=== PATIENT | male | born 1975 | race African-American/Black ===

== ENCOUNTER 2016-11-19 03:13 | Emergency (ER) | payer MEDICARE, MEDICAID ==
[~2016-11-19] VITALS: Ht 182.9 cm; Wt 109.0 kg
[2016-11-19] MEDS ORDERED: SODIUM CHLORIDE 0.9% 250 ML IV ONE (05:23)
[2016-11-19] MEDS ORDERED: ONDANSETRON HCL 4MG/2ML VIAL IV ONE (05:30)
[2016-11-19] MEDS ORDERED: FAMOTIDINE 20MG/2ML VIAL IV ONE (05:30)
[2016-11-19 05:48] LABS: BASOPHILS % 0.6 % (0.0-2.0); EOSINOPHILS % 0.1 % (0.0-5.0); HEMATOCRIT. 53.9 % (42.0-52.0); HEMOGLOBIN. 18.5 g/dL (14.0-18.0); LYMPHOCYTES % 12.7 % (20.0-50.0); MEAN CORPUSCULAR HEMOGLOBIN 28.4 pg (28.0-32.0); MEAN CORPUSCULAR VOLUME 82.7 fL (80.0-94.0); MEAN PLATELET VOLUME 8.7 fl (7.4-10.4); MONOCYTES % 7.7 % (2.0-8.0); NEUTROPHILS % 78.9 % (40.0-76.0); PLATELET 247 x1000/uL (130-400); RED BLOOD CELL COUNT 6.52 mill/uL (4.7-6.1); RED CELL DISTRIBUTION WIDTH 14.2 % (11.6-14.6)
[2016-11-19 06:03] LABS: CARBON DIOXIDE 34 mEq/L (21-32); CHLORIDE 93 mEq/L (98-107)
[2016-11-19 06:55] LABS: CLARITY URINE CLEAR (CLEAR); COLOR URINE ORANGE (YELLOW); GLUCOSE URINE NEGATIVE (NEGATIVE); KETONES URINE 4+ (NEGATIVE); LEUKOCYTE ESTERASE URINE NEGATIVE (NEGATIVE); NITRITE URINE POSITIVE (NEGATIVE); OCCULT BLOOD URINE NEGATIVE (NEGATIVE); PH URINE 6.5 (4.5-8.0); PROTEIN URINE 1+ (NEGATIVE); SPECIFIC GRAVITY URINE 1.032 (1.005-1.030)
[2016-11-19 07:11] LABS: CREATINE KINASE 211 IU/L (39-308); CREATINE KINASE MB FRACTION 2.5 ng/mL (0.5-3.6); TROPONIN I < 0.02 ng/mL (0.00-0.04)
[2016-11-19] MEDS ORDERED: CEFTRIAXONE 1 G PREMIX 50 ML IV ONE (08:00)
[2016-11-19 08:34] LABS: *AMPHETAMINES SCREEN URINE NEGATIVE (NEGATIVE); *BARBITURATES SCREEN URINE NEGATIVE (NEGATIVE); *BENZODIAZEPINES SCREEN URINE NEGATIVE (NEGATIVE); *COCAINE SCREEN URINE NEGATIVE (NEGATIVE); CANNABINOID URINE SCREEN PRESUMTIVE POSITIVE (NEGATIVE); METHADONE URINE SCREEN NEGATIVE (NEGATIVE); OPIATES URINE SCREEN NEGATIVE (NEGATIVE); PHENCYCLIDINE URINE SCREEN PRESUMTIVE POSITIVE (NEGATIVE)
[2016-11-19 08:58] VITALS: BP 147/99
== END 2016-11-19 10:13 | disposition home or self-care (01) ==
LOC: ER 07:34
DX: R11.2 Nausea with vomiting, unspecified (principal); R42 Dizziness and giddiness; R53.1 Weakness; F17.200 Nicotine dependence, unspecified, uncomplicated; F12.10 Cannabis abuse, uncomplicated
CPT/HCPCS: 36415; 74022; 80053; 80305; 81001; 82550; 82553; 84484; 85025; 93005; 96361; 96365; 96375; 99285; J0696; J2405; J3490; J7030; J7050

== ENCOUNTER 2016-11-20 20:20 | Emergency (ER) | payer MEDICARE, MEDICAID ==
[~2016-11-20] VITALS: Ht 182.9 cm; Wt 107.0 kg
[2016-11-21] MEDS ORDERED: SODIUM CHLORIDE 0.9% 1,000 ML IV ONE (01:30)
[2016-11-21] MEDS ORDERED: OMEPRAZOLE 20MG CAPSULE EXTENDED RELEASE PO ONE (01:30)
[2016-11-21] MEDS ORDERED: ONDANSETRON HCL 4MG/2ML VIAL IV ONE (02:45)
[2016-11-21 03:20] VITALS: BP 158/95
== END 2016-11-21 03:40 | disposition home or self-care (01) ==
LOC: ER 20:20
DX: K21.9 Gastro-esophageal reflux disease without esophagitis (principal); F17.200 Nicotine dependence, unspecified, uncomplicated; F12.90 Cannabis use, unspecified, uncomplicated
CPT/HCPCS: 96361; 96374; 99284; J2405; J7030

== ENCOUNTER 2016-12-20 10:38 | Inpatient (IN) | payer MEDICARE, MEDICAID ==
[~2016-12-20] VITALS: Ht 182.9 cm; Wt 94.8 kg
[2016-12-20] MEDS ORDERED: ONDANSETRON HCL 4MG/2ML VIAL IV STA (11:05)
[2016-12-20] MEDS ORDERED: SODIUM CHLORIDE 0.9% 1,000 ML IV ONE (11:05)
[2016-12-20] MEDS ORDERED: FAMOTIDINE 20MG/2ML VIAL IV STA (11:05)
[2016-12-20] MEDS ORDERED: ONDANSETRON HCL 4MG/2ML VIAL IV ONE (11:25)
[2016-12-20] MEDS ORDERED: FAMOTIDINE 20MG/2ML VIAL IV ONE (11:30)
[2016-12-20 11:40] LABS: HEMATOCRIT. 56.6 % (42.0-52.0); HEMOGLOBIN. 19.6 g/dL (14.0-18.0); MEAN CORPUSCULAR HEMOGLOBIN 28.5 pg (28.0-32.0); MEAN CORPUSCULAR VOLUME 82.4 fL (80.0-94.0); MEAN PLATELET VOLUME 8.9 fl (7.4-10.4); PLATELET 284 x1000/uL (130-400); RED BLOOD CELL COUNT 6.87 mill/uL (4.7-6.1); RED CELL DISTRIBUTION WIDTH 14.1 % (11.6-14.6)
[2016-12-20 11:49] LABS: INR 1.1; PROTHROMBIN TIME 11.8 sec
[2016-12-20 11:53] LABS: CARBON DIOXIDE 35 mEq/L (21-32); CHLORIDE 93 mEq/L (98-107)
[2016-12-20 12:13] LABS: PLATELET ESTIMATE NORMAL
[2016-12-20] MEDS ORDERED: POTASSIUM CHLORIDE 20MEQ TABLET SR PO ONE (12:15)
[2016-12-20] MEDS ORDERED: SODIUM CHLORIDE 0.9% 1000ML BAG (SEPSIS BOLUS) IV ONE (12:15)
[2016-12-20 12:34] LABS: CLARITY URINE TURBID (CLEAR); COLOR URINE ORANGE (YELLOW); GLUCOSE URINE NEGATIVE (NEGATIVE); KETONES URINE 4+ (NEGATIVE); LEUKOCYTE ESTERASE URINE TRACE (NEGATIVE); NITRITE URINE POSITIVE (NEGATIVE); OCCULT BLOOD URINE NEGATIVE (NEGATIVE); PH URINE 6.5 (4.5-8.0); PROTEIN URINE 3+ (NEGATIVE); SPECIFIC GRAVITY URINE 1.036 (1.005-1.030)
[2016-12-20] MEDS ORDERED: SODIUM CHLORIDE 0.9% 2,000 ML IV SCH (12:45)
[2016-12-20] MEDS ORDERED: SODIUM CHLORIDE 0.9% 10ML VIAL ONE (13:53)
[2016-12-20] MEDS ORDERED: IOHEXOL-300 100 ML BOTTLE ONE (13:53)
[2016-12-20] MEDS ORDERED: GUAIFENESIN 200MG/10ML SUGAR FREE UDC PO PRN (14:15)
[2016-12-20] MEDS ORDERED: ACETAMINOPHEN 325MG TABLET PO PRN (14:15)
[2016-12-20] MEDS ORDERED: DOCUSATE SODIUM 100MG CAPSULE PO PRN (14:15)
[2016-12-20] MEDS ORDERED: IPRATROPIUM/ALBUTEROL 0.5-3(2.5)MG/3ML NEB INH PRN (14:15)
[2016-12-20] MEDS ORDERED: HYDROCODONE/ACETAMINOPHEN 5/325MG TABLET PO PRN (14:15)
[2016-12-20] MEDS ORDERED: LORAZEPAM 2MG/ML CPJ IV PRN (14:15)
[2016-12-20] MEDS ORDERED: ENOXAPARIN 40MG/0.4ML SYR SUBCUT SCH (14:15)
[2016-12-20] MEDS ORDERED: NA PHOS,M-B/NA PHOS,DI-BA ENEMA 118ML PR PRN (14:15)
[2016-12-20] MEDS ORDERED: DIPHENHYDRAMINE 50MG/ML VIAL IV PRN (14:15)
[2016-12-20] MEDS ORDERED: MAGNESIUM/ALUMINUM HYDROXIDE/SIMETHICONE 30ML UDC PO PRN (14:15)
[2016-12-20] MEDS ORDERED: HYDROMORPHONE HCL/PF 2MG/ML CPJ IV PRN (14:15)
[2016-12-20 16:00] VITALS: BP 142/101
[2016-12-20 16:30] VITALS: BP 142/101
[2016-12-20] MEDS: SODIUM CHLORIDE 0.45% 1,000 ML IV SCH (17:38)
[2016-12-20] MEDS ORDERED: ONDA4TAB5 PO (17:55)
[2016-12-20] MEDS ORDERED: RANI-563 PO (17:56)
[2016-12-20 19:04] LABS: CARBON DIOXIDE 36 mEq/L (21-32); CHLORIDE 97 mEq/L (98-107)
[2016-12-20 20:00] VITALS: BP 139/108
[2016-12-20] MEDS: ENOXAPARIN 30MG/0.3ML SYR SUBCUT SCH (21:00)
[2016-12-20 21:15] VITALS: BP 124/88
[2016-12-20] MEDS: ONDANSETRON HCL 4MG/2ML VIAL IV PRN (22:29)
[2016-12-21] VITALS: BP 134/98
[2016-12-21 04:00] VITALS: BP 134/94
[2016-12-21] MEDS: ONDANSETRON HCL 4MG/2ML VIAL IV PRN ×3 (06:01→18:36)
[2016-12-21 06:50] LABS: BASOPHILS % 0.4 % (0.0-2.0); HEMATOCRIT. 54.7 % (42.0-52.0); HEMOGLOBIN. 18.6 g/dL (14.0-18.0); MEAN CORPUSCULAR HEMOGLOBIN 28.2 pg (28.0-32.0); MEAN CORPUSCULAR VOLUME 82.8 fL (80.0-94.0); MEAN PLATELET VOLUME 8.8 fl (7.4-10.4); MONOCYTES % 7.3 % (2.0-8.0); NEUTROPHILS % 83.3 % (40.0-76.0); PLATELET 311 x1000/uL (130-400); RED BLOOD CELL COUNT 6.61 mill/uL (4.7-6.1); RED CELL DISTRIBUTION WIDTH 14.1 % (11.6-14.6)
[2016-12-21 07:27] LABS: CARBON DIOXIDE 34 mEq/L (21-32); CHLORIDE 95 mEq/L (98-107); HDL CHOLESTEROL 31 mg/dL (40-59); LDL CHOLESTEROL 207 mg/dL (5-100)
[2016-12-21] MEDS: ENOXAPARIN 30MG/0.3ML SYR SUBCUT SCH ×2 (08:29→21:00)
[2016-12-21] MEDS: PANTOPRAZOLE SODIUM 40 MG/VIAL IV SCH (08:29)
[2016-12-21 08:30] VITALS: BP 142/101
[2016-12-21] MEDS: SODIUM CHLORIDE 0.45% 1,000 ML IV SCH ×2 (08:48→18:16)
[2016-12-21 09:58] LABS: T4 FREE 1.56 ng/dL (0.76-1.46)
[2016-12-21] MEDS: CLONIDINE 0.1MG TABLET PO PRN ×2 (12:36→18:37)
[2016-12-21 15:38] LABS: CREATINE KINASE 105 IU/L (39-308); CREATINE KINASE MB FRACTION 1.1 ng/mL (0.5-3.6); TROPONIN I < 0.02 ng/mL (0.00-0.04)
[2016-12-21 16:00] VITALS: BP 150/98
[2016-12-21 18:33] VITALS: BP 156/109
[2016-12-21 20:00] VITALS: BP 135/95
[2016-12-21 23:29] LABS: CREATINE KINASE 101 IU/L (39-308); CREATINE KINASE MB FRACTION 1.1 ng/mL (0.5-3.6); TROPONIN I < 0.02 ng/mL (0.00-0.04)
[2016-12-22] VITALS (7 sets, daily range): BP systolic 119–149; BP diastolic 81–115
[2016-12-22] MEDS: ONDANSETRON HCL 4MG/2ML VIAL IV PRN (00:07)
[2016-12-22] MEDS: SODIUM CHLORIDE 0.45% 1,000 ML IV SCH ×2 (05:25→18:23)
[2016-12-22 06:05] LABS: CREATINE KINASE 93 IU/L (39-308); CREATINE KINASE MB FRACTION 0.8 ng/mL (0.5-3.6); TROPONIN I < 0.02 ng/mL (0.00-0.04)
[2016-12-22 06:19] LABS: BASOPHILS % 0.5 % (0.0-2.0); HEMATOCRIT. 51.8 % (42.0-52.0); HEMOGLOBIN. 17.8 g/dL (14.0-18.0); LYMPHOCYTES % 12.5 % (20.0-50.0); MEAN CORPUSCULAR HEMOGLOBIN 28.5 pg (28.0-32.0); MEAN CORPUSCULAR VOLUME 83.2 fL (80.0-94.0); MEAN PLATELET VOLUME 9.1 fl (7.4-10.4); MONOCYTES % 10.2 % (2.0-8.0); NEUTROPHILS % 76.8 % (40.0-76.0); PLATELET 268 x1000/uL (130-400); RED BLOOD CELL COUNT 6.23 mill/uL (4.7-6.1); RED CELL DISTRIBUTION WIDTH 13.9 % (11.6-14.6)
[2016-12-22] MEDS: PANTOPRAZOLE SODIUM 40 MG/VIAL IV SCH (08:44)
[2016-12-22] MEDS: POTASSIUM CHLORIDE 20MEQ TABLET SR PO NR ×2 (08:45→09:05)
[2016-12-22] MEDS: ENOXAPARIN 30MG/0.3ML SYR SUBCUT SCH ×2 (08:45→20:55)
[2016-12-22 09:52] LABS: CARBON DIOXIDE 37 mEq/L (21-32); CHLORIDE 95 mEq/L (98-107)
[2016-12-22 10:19] LABS: AMYLASE 99 IU/L (25-115)
[2016-12-22] MEDS ORDERED: KCL 20MEQ/100ML PREMIX 100 ML IV NR (12:00)
[2016-12-22 22:02] LABS: CHLORIDE 95 mEq/L (98-107)
[2016-12-22 22:04] LABS: CARBON DIOXIDE 38 mEq/L (21-32)
[2016-12-23] VITALS: BP 134/95
[2016-12-23 04:00] VITALS: BP 141/96
[2016-12-23] MEDS: SODIUM CHLORIDE 0.45% 1,000 ML IV SCH (06:37)
[2016-12-23] MEDS ORDERED: POTASSIUM CHLORIDE 20MEQ TABLET SR PO NR (09:00)
[2016-12-23] MEDS: PANTOPRAZOLE SODIUM 40 MG/VIAL IV SCH (09:26)
[2016-12-23] MEDS: ENOXAPARIN 30MG/0.3ML SYR SUBCUT SCH (09:27)
[2016-12-23 10:34] VITALS: BP 136/76
== END 2016-12-23 10:50 | disposition home or self-care (01) | DRG 392 ==
LOC: ER 10:38 → 5WST 13:34 → EDBEDREQ 13:39 → ENRESERV 15:50
PROVIDERS: ADMIT Internal Medicine; ATTEND Internal Medicine
DX: K29.70 Gastritis, unspecified, without bleeding (principal); N39.0 Urinary tract infection, site not specified; E87.2 Acidosis; R65.10 Systemic inflammatory response syndrome (SIRS) of non-infectious origin without acute organ dysfunction; K57.90 Diverticulosis of intestine, part unspecified, without perforation or abscess without bleeding; E78.5 Hyperlipidemia, unspecified; E86.0 Dehydration; E87.6 Hypokalemia; D64.9 Anemia, unspecified; F12.90 Cannabis use, unspecified, uncomplicated; F17.200 Nicotine dependence, unspecified, uncomplicated; R00.0 Tachycardia, unspecified; K21.9 Gastro-esophageal reflux disease without esophagitis; K59.00 Constipation, unspecified; Z79.899 Other long term (current) drug therapy
CPT/HCPCS: 36415; 74000; 74177; 76700; 80048; 80053; 80061; 81001; 82150; 82550; 82553; 83036; 83605; 83690; 83735; 83880; 84439; 84443; 84484; 85025; 85379; 85610; 87040; 87086; 93005; 96374; 96375; 99285; A4216; C9113; J1650; J2060; J2405; J3480; J3490; J7030; Q9967

== ENCOUNTER 2017-06-12 16:25 | Emergency (ER) | payer MEDICAID, MEDICARE ==
[~2017-06-12] VITALS: Ht 177.8 cm; Wt 95.0 kg
[~2017-06-12 16:25] MED LIST: ONDA4TAB5 PO; RANI-563 PO
[2017-06-12 16:29] VITALS: BP 164/88
== END 2017-06-12 16:45 | disposition left against medical advice (07) ==
LOC: ER 16:25
DX: R41.82 Altered mental status, unspecified (principal); Z53.21 Procedure and treatment not carried out due to patient leaving prior to being seen by health care provider

== ENCOUNTER 2017-08-08 16:34 | Emergency (ER) | payer MEDICARE, OTHER ==
[~2017-08-08] VITALS: Ht 182.9 cm; Wt 109.0 kg
[2017-08-08] MEDS ORDERED: SODIUM CHLORIDE 0.9% 1,000 ML IV ONE (23:16)
[2017-08-08] MEDS ORDERED: FAMOTIDINE 20MG/2ML VIAL IV ONE (23:30)
[2017-08-08] MEDS ORDERED: ONDANSETRON HCL 4MG/2ML VIAL IV ONE (23:30)
[2017-08-09 00:20] LABS: CHLORIDE 98 mEq/L (98-107)
[2017-08-09 00:23] LABS: BASOPHILS % 0.3 % (0.0-2.0); HEMATOCRIT. 51.7 % (42.0-52.0); HEMOGLOBIN. 17.2 g/dL (14.0-18.0); LYMPHOCYTES % 7.8 % (20.0-50.0); MEAN CORPUSCULAR HEMOGLOBIN 28.1 pg (28.0-32.0); MEAN CORPUSCULAR VOLUME 84.6 fL (80.0-94.0); MEAN PLATELET VOLUME 8.5 fl (7.4-10.4); MONOCYTES % 7.3 % (2.0-8.0); NEUTROPHILS % 84.6 % (40.0-76.0); PLATELET 262 x1000/uL (130-400); RED BLOOD CELL COUNT 6.11 mill/uL (4.7-6.1)
[2017-08-09 01:53] LABS: CLARITY URINE CLEAR (CLEAR); COLOR URINE DARK YELLOW (YELLOW); KETONES URINE 2+ (NEGATIVE); LEUKOCYTE ESTERASE URINE NEGATIVE (NEGATIVE); NITRITE URINE NEGATIVE (NEGATIVE); OCCULT BLOOD URINE NEGATIVE (NEGATIVE); PH URINE 6.5 (4.5-8.0); PROTEIN URINE 2+ (NEGATIVE); SPECIFIC GRAVITY URINE 1.027 (1.005-1.030)
[2017-08-09 02:02] LABS: *AMPHETAMINES SCREEN URINE NEGATIVE (NEGATIVE); *BARBITURATES SCREEN URINE NEGATIVE (NEGATIVE); *BENZODIAZEPINES SCREEN URINE NEGATIVE (NEGATIVE); *COCAINE SCREEN URINE NEGATIVE (NEGATIVE); CANNABINOID URINE SCREEN PRESUMTIVE POSITIVE (NEGATIVE); METHADONE URINE SCREEN NEGATIVE (NEGATIVE); OPIATES URINE SCREEN NEGATIVE (NEGATIVE); PHENCYCLIDINE URINE SCREEN PRESUMTIVE POSITIVE (NEGATIVE)
[2017-08-09] MEDS ORDERED: POTASSIUM CHLORIDE 20MEQ TABLET SR PO ONE (02:30)
[2017-08-09] MEDS ORDERED: ONDANSETRON HCL 4MG TABLET PO ONE (03:00)
[2017-08-09 04:46] VITALS: BP 141/88
== END 2017-08-09 05:07 | disposition home or self-care (01) ==
LOC: ER 18:57
DX: K29.70 Gastritis, unspecified, without bleeding (principal); F16.10 Hallucinogen abuse, uncomplicated
CPT/HCPCS: 36415; 80053; 80305; 81003; 83690; 85025; 93005; 96361; 96374; 96375; 99285; J2405; J3490; J7030; Q0162

== ENCOUNTER 2017-11-02 13:48 | Emergency (ER) | payer OTHER ==
[~2017-11-02] VITALS: Ht 185.4 cm; Wt 95.0 kg
[2017-11-02 15:51] LABS: BASOPHILS % 0.5 % (0.0-2.0); EOSINOPHILS % 0.5 % (0.0-5.0); HEMATOCRIT. 46.3 % (42.0-52.0); HEMOGLOBIN. 15.6 g/dL (14.0-18.0); LYMPHOCYTES % 9.8 % (20.0-50.0); MEAN CORPUSCULAR HEMOGLOBIN 28.6 pg (28.0-32.0); MEAN CORPUSCULAR VOLUME 84.8 fL (80.0-94.0); MONOCYTES % 6.5 % (2.0-8.0); NEUTROPHILS % 82.7 % (40.0-76.0); PLATELET 300 x1000/uL (130-400); RED BLOOD CELL COUNT 5.46 mill/uL (4.7-6.1); RED CELL DISTRIBUTION WIDTH 14.6 % (11.6-14.6)
[2017-11-02 15:54] LABS: CHLORIDE 107 mEq/L (98-107)
[2017-11-02 15:58] LABS: ETHANOL BLOOD < 10 mg/dL
[2017-11-02 17:07] VITALS: BP 118/68
== END 2017-11-02 18:13 | disposition home or self-care (01) ==
LOC: ER 14:34
DX: T40.1X1A Poisoning by heroin, accidental (unintentional), initial encounter (principal); Y92.89 Other specified places as the place of occurrence of the external cause
CPT/HCPCS: 36415; 80053; 85025; 99284; G0482

== ENCOUNTER 2022-10-07 17:17 | Emergency (ER) | payer MEDICARE, MEDICAID ==
[~2022-10-07] VITALS: Ht 177.8 cm; Wt 90.0 kg
[~2022-10-07 17:17] MED LIST changes: +ATOR40TA70 PO; +OMEP40CA20 PO; -RANI-563 PO
[2022-10-07 17:32] VITALS: BP 134/95
[2022-10-07] MEDS ORDERED: SODIUM CHLORIDE 0.9% 1,000 ML IV ONE (17:45)
== END 2022-10-07 18:44 | disposition left against medical advice (07) ==
LOC: ER 18:23
DX: R47.81 Slurred speech (principal); Z53.29 Procedure and treatment not carried out because of patient's decision for other reasons; Z98.890 Other specified postprocedural states
CPT/HCPCS: 99283; J7030